=== PATIENT | male | born 1950 | race Caucasian/White ===

== ENCOUNTER 2018-12-12 18:39 | Emergency (ER) | payer BC ==
[2018-12-12 19:08] VITALS: RESP 16; TEMP 96.7
[2018-12-12 20:23] VITALS: BP 121/90; PULSE 75; O2SAT 95
== END 2018-12-12 20:11 | disposition home or self-care (01) | DRG 563 ==
LOC: ED 18:39
DX: S92.001A Unspecified fracture of right calcaneus, initial encounter for closed fracture (principal)
CPT/HCPCS: 73610; 99282; 99283; E0114

== ENCOUNTER 2018-12-19 11:27 | Outpatient (CLI) | payer BC ==
[2018-12-12 20:23] VITALS: O2SAT 95
== END 2018-12-19 11:28 | disposition home or self-care (01) | DRG 561 ==
LOC: CONVCARE 11:27
PROVIDERS: ATTEND Orthopaedic Surgery
DX: S92.001D Unspecified fracture of right calcaneus, subsequent encounter for fracture with routine healing (principal)
CPT/HCPCS: 73650

== ENCOUNTER 2019-01-09 10:16 | Outpatient (CLI) | payer BC ==
[2018-12-12 20:23] VITALS: O2SAT 95
== END 2019-01-09 10:17 | disposition home or self-care (01) | DRG 561 ==
LOC: CONVCARE 10:16
PROVIDERS: ATTEND Orthopaedic Surgery
DX: S92.001D Unspecified fracture of right calcaneus, subsequent encounter for fracture with routine healing (principal)
CPT/HCPCS: 73650

== ENCOUNTER 2019-01-30 09:28 | Outpatient (CLI) | payer BC ==
[2018-12-12 20:23] VITALS: O2SAT 95
== END 2019-01-30 09:29 | disposition home or self-care (01) | DRG 561 ==
LOC: CONVCARE 09:28
PROVIDERS: ATTEND Orthopaedic Surgery
DX: S92.001D Unspecified fracture of right calcaneus, subsequent encounter for fracture with routine healing (principal)
CPT/HCPCS: 73650